=== PATIENT | female | born 1965 | race African-American/Black ===

== ENCOUNTER 2018-11-10 15:36 | Inpatient (IN) ==
[2018-11-10] MEDS ORDERED: SODIUM CHLORIDE 0.9% 1,000 ML IV STA ×2 (16:03→17:22)
[2018-11-10] MEDS ORDERED: ONDANSETRON 4 MG/2 ML VIAL IV STA (16:07)
[2018-11-10] MEDS ORDERED: hydrALAZINE 20 MG/1 ML VIAL IV STA (16:40)
[2018-11-10 16:52] LABS: Hematocrit 32.6 VOL% (35.7-47.0); Hemoglobin 10.1 GM/DL (12.0-16.0); Immature Granulocytes % 0.3 %; Immature Granulocytes Absolute 0.02 #; Lymphocytes # 1.4 10*3/uL (1.4-4.0); Lymphocytes % 24.3 % (21.3-54.2); Mean Corpuscular Volume 75.5 FL (87-102); Mean Platelet Volume 10.2 FL (9.6-12.0); Monocytes % 5.4 % (1.7-12.7); Platelet Count 345 T/CUMM (130-400); Red Blood Count 4.32 MC/CUMM (3.8-5.5); Red Cell Distribution Width 15.2 % (9.3-17.3); White Blood Count 5.8 T/CUMM (4-12)
[2018-11-10 17:03] LABS: INR 0.9; PT Patient Result 9.5 SECS (9.6-12.2)
[2018-11-10] MEDS ORDERED: INSULIN REGULAR 100 UNIT/ML IV STA (17:03)
[2018-11-10 17:10] LABS: Alanine Aminotransferase 16 U/L (13-56); Albumin 3.3 G/DL (3.4-5.0); Alkaline Phosphatase 103 U/L (45-117); Aspartate Amino Transferase 11 U/L (0-37); Bilirubin,Total < 0.39 MG/DL (0.2-1.0); Blood Urea Nitrogen 19 MG/DL (7-18); Calcium 9.8 MG/DL (8.5-10.1); Estimated Glom Filtration Rate 40 ML/MIN; Osmolality,Calculated 291.7 MOS/KG (273-304); Total Protein 7.6 G/DL (6.4-8.3); Troponin I < 0.015 NG/ML (0.00-0.045)
[2018-11-10] MEDS ORDERED: DEXTROSE 50% 25 GM/50 ML VIAL IV PRN (20:45)
[2018-11-10] MEDS ORDERED: ONDANSETRON 4 MG/2 ML VIAL IV PRN (20:45)
[2018-11-10] MEDS ORDERED: GLUCAGON 1 MG VIAL IM PRN (20:45)
[2018-11-10] MEDS ORDERED: ENOXAPARIN 40 MG/0.4 ML SYRINGE SUBCUT SCH (21:00)
[2018-11-10 21:41] LABS: Apearance,Urine CLEAR (Clear); Bacteria,Urine Occasional /HPF (Few); Bilirubin,Urine Negative (Negative); Blood, Urine Small mg/dL (Negative); Glucose,Urine (UA) >=500 mg/dL (Negative); Ketones,Urine Negative (Negative); Nitrite,Urine Negative (Negative); Protein,Urine 100 MG/DL; RBC,Urine 1 /HPF (0-4); Squamous Epithelial Cell,Urine Occasional /HPF (0-10); Urine Color Straw (Yellow); Urine Specific Gravity 1.017 (1.001-1.035); Urine Urobilinogen < 2.0 EU/DL (0.2-1.0); WBC,Urine <1 /HPF (0-6)
[2018-11-10] MEDS ORDERED: VENLAFAXINE XR 75 MG CAPSULE PO SCH (22:07)
[2018-11-10] MEDS ORDERED: LISINOPRIL 10 MG TABLET PO SCH (22:07)
[2018-11-10] MEDS ORDERED: ALBUTEROL 2.5 MG/3 ML NEB RESP TX PRN (22:07)
[2018-11-10] MEDS ORDERED: ZALEPLON 5 MG CAPSULE PO SCH (22:07)
[2018-11-10] MEDS ORDERED: HydrOXYzine PAMOATE 25 MG CAPSULE PO PRN (22:07)
[2018-11-10 22:08] LABS: Barbiturates Screen,Urine Negative (Negative); Benzodiazepines Screen,Urine Negative (Negative); Cannabinoid Screen,Urine Negative (Negative); Opiate Screen,Urine Negative (Negative); Phencyclidine Screen,Urine Negative (Negative)
[2018-11-10] MEDS: INSULIN REGULAR 100 UNIT/ML SUBCUT SCH ×2 (22:24→23:12)
[2018-11-10] MEDS: LABETALOL 20 MG/4 ML SYRINGE IV SCH ×2 (22:25→23:51)
[2018-11-10] MEDS ORDERED: INSULIN REGULAR 100 UNIT/ML SUBCUT STA (22:52)
[2018-11-10] MEDS: BENZTROPINE 1 MG TABLET PO SCH (23:05)
[2018-11-10] MEDS: hydroCHLOROthiazide 25 MG TABLET PO SCH (23:06)
[2018-11-10] MEDS: amLODIPine 5 MG TABLET PO SCH (23:08)
[2018-11-10] MEDS: QUEtiapine XR 50 MG TABLET PO SCH (23:09)
[2018-11-10] MEDS: MONTELUKAST 10 MG TABLET PO SCH (23:29)
[2018-11-11] MEDS: SODIUM CHLORIDE 0.9% 1,000 ML IV SCH ×4 (00:02→15:15)
[2018-11-11] MEDS: LABETALOL 20 MG/4 ML SYRINGE IV SCH ×16 (01:02→23:30)
[2018-11-11] MEDS: INSULIN REGULAR 100 UNIT/ML SUBCUT SCH ×5 (01:49→21:59)
[2018-11-11 06:17] LABS: Glucose 594 MG/DL (74-106)
[2018-11-11 07:14] LABS: Alanine Aminotransferase 12 U/L (13-56); Albumin 2.4 G/DL (3.4-5.0); Alkaline Phosphatase 75 U/L (45-117); Aspartate Amino Transferase 10 U/L (0-37); Bilirubin,Total < 0.39 MG/DL (0.2-1.0); Blood Urea Nitrogen 16 MG/DL (7-18); Calcium 8.9 MG/DL (8.5-10.1); Estimated Glom Filtration Rate 35 ML/MIN; Glucose 117 MG/DL (74-106); Osmolality,Calculated 282.3 MOS/KG (273-304); Total Protein 5.7 G/DL (6.4-8.3)
[2018-11-11 07:26] LABS: Eosinophils % 0.2 % (0.00-10.9); Hematocrit 24.9 VOL% (35.7-47.0); Immature Granulocytes % 0.3 %; Immature Granulocytes Absolute 0.02 #; Lymphocytes % 32.8 % (21.3-54.2); Mean Corpuscular HGB Conc 30.9 GM/DL (32-36); Mean Corpuscular Volume 76.9 FL (87-102); Mean Platelet Volume 9.5 FL (9.6-12.0); Monocytes % 9.1 % (1.7-12.7); Neutrophils % 57.6 % (38.7-73.9); Red Cell Distribution Width 15.4 % (9.3-17.3); White Blood Count 6.1 T/CUMM (4-12)
[2018-11-11 07:30] LABS: Hemoglobin 7.7 GM/DL (12.0-16.0); Platelet Count 225 T/CUMM (130-400); Red Blood Count 3.24 MC/CUMM (3.8-5.5)
[2018-11-11] MEDS ORDERED: metFORMIN 500 MG TABLET PO SCH (08:00)
[2018-11-11] MEDS: INSULIN LISPRO 100 UNIT/ML SUBCUT SCH ×3 (08:42→18:51)
[2018-11-11] MEDS: PANTOPRAZOLE 40 MG TABLET PO SCH ×2 (09:32→09:55)
[2018-11-11 12:01] LABS: % Iron Saturation 9.2 % (18-50); Ferritin 9.4 ng/ml (8-252)
[2018-11-11] MEDS ORDERED: cloNIDine 0.1 MG TABLET PO PRN (16:29)
[2018-11-11 17:17] LABS: Microalbum/Creat Ratio Random 1924.1 RATIO (0-30)
[2018-11-11] MEDS: ROSUVASTATIN 20 MG TABLET PO SCH (21:53)
[2018-11-11] MEDS: hydroCHLOROthiazide 25 MG TABLET PO SCH (21:53)
[2018-11-11] MEDS: APIXABAN 5 MG TABLET PO SCH (21:53)
[2018-11-11] MEDS: MONTELUKAST 10 MG TABLET PO SCH (21:53)
[2018-11-11] MEDS: amLODIPine 5 MG TABLET PO SCH (21:53)
[2018-11-11] MEDS: BENZTROPINE 1 MG TABLET PO SCH (21:54)
[2018-11-11] MEDS: QUEtiapine XR 50 MG TABLET PO SCH (21:54)
[2018-11-12] MEDS: LABETALOL 20 MG/4 ML SYRINGE IV SCH ×10 (00:26→11:50)
[2018-11-12 04:56] LABS: Eosinophils % 0.2 % (0.00-10.9); Hemoglobin 8.4 GM/DL (12.0-16.0); Immature Granulocytes % 0.2 %; Lymphocytes # 1.9 10*3/uL (1.4-4.0); Mean Corpuscular HGB Conc 31.1 GM/DL (32-36); Mean Corpuscular Volume 76.7 FL (87-102); Mean Platelet Volume 9.8 FL (9.6-12.0); Monocytes % 8.2 % (1.7-12.7); Neutrophils % 58.4 % (38.7-73.9); Platelet Count 247 T/CUMM (130-400); Red Blood Count 3.52 MC/CUMM (3.8-5.5); Red Cell Distribution Width 15.7 % (9.3-17.3); White Blood Count 5.7 T/CUMM (4-12)
[2018-11-12 04:57] LABS: Immature Granulocytes Absolute 0.01 #
[2018-11-12 05:27] LABS: Calcium 8.4 MG/DL (8.5-10.1); Osmolality,Calculated 283.5 MOS/KG (273-304)
[2018-11-12 05:57] LABS: Risk Ratio 3.3; VLDL CHOLESTEROL 57.4 MG/DL
[2018-11-12 06:08] LABS: Lymphocytes 36 % (20-55); Platelet Estimate Normal; Segmented Neutrophils 61 % (50-85); Total Cells Counted 100
[2018-11-12 06:09] LABS: Anisocytosis 1+; Smudge Cells Few
[2018-11-12] MEDS: SODIUM CHLORIDE 0.9% 1,000 ML IV SCH (06:15)
[2018-11-12] MEDS: INSULIN LISPRO 100 UNIT/ML SUBCUT SCH ×3 (07:31→16:36)
[2018-11-12] MEDS: INSULIN REGULAR 100 UNIT/ML SUBCUT SCH ×4 (07:31→20:20)
[2018-11-12] MEDS: COENZYME Q10 100 MG CAPSULE PO SCH (08:15)
[2018-11-12] MEDS: PANTOPRAZOLE 40 MG TABLET PO SCH (08:15)
[2018-11-12] MEDS ORDERED: VENLAFAXINE XR 75 MG CAPSULE PO SCH (09:00)
[2018-11-12] MEDS: IRON SUCROSE 200 MG in SODIUM CHLORIDE 0.9% 100 ML IV SCH (09:05)
[2018-11-12] MEDS: APIXABAN 5 MG TABLET PO SCH ×2 (09:05→20:20)
[2018-11-12] MEDS ORDERED: hydrALAZINE 20 MG/1 ML VIAL IV PRN (10:38)
[2018-11-12] MEDS ORDERED: LABETALOL 20 MG/4 ML SYRINGE IV PRN (10:38)
[2018-11-12] MEDS ORDERED: MAGNESIUM SULF RIDER 2 GM in PREMIX 1 EACH IV PRN (10:42)
[2018-11-12] MEDS ORDERED: MAGNESIUM SULF RIDER 4 GM in PREMIX 1 EACH IV PRN (10:42)
[2018-11-12] MEDS ORDERED: SODIUM CHLORIDE 0.9% 1,000 ML IV SCH (11:18)
[2018-11-12] MEDS: cloNIDine 0.1 MG TABLET PO SCH ×2 (11:22→20:20)
[2018-11-12] MEDS: BENZTROPINE 1 MG TABLET PO SCH (20:20)
[2018-11-12] MEDS: MONTELUKAST 10 MG TABLET PO SCH (20:20)
[2018-11-12] MEDS: ROSUVASTATIN 20 MG TABLET PO SCH (20:20)
[2018-11-13] MEDS: INSULIN REGULAR 100 UNIT/ML SUBCUT SCH ×4 (08:49→22:49)
[2018-11-13] MEDS: INSULIN LISPRO 100 UNIT/ML SUBCUT SCH ×3 (08:50→18:45)
[2018-11-13] MEDS: APIXABAN 5 MG TABLET PO SCH (08:51)
[2018-11-13] MEDS: hydroCHLOROthiazide 25 MG TABLET PO SCH (08:53)
[2018-11-13] MEDS: PANTOPRAZOLE 40 MG TABLET PO SCH (08:53)
[2018-11-13] MEDS: cloNIDine 0.1 MG TABLET PO SCH ×2 (08:54→21:37)
[2018-11-13] MEDS: COENZYME Q10 100 MG CAPSULE PO SCH (08:55)
[2018-11-13] MEDS ORDERED: amLODIPine 5 MG TABLET PO SCH (09:00)
[2018-11-13] MEDS ORDERED: amLODIPine 5 MG TABLET PO ONE (09:23)
[2018-11-13] MEDS: INSULIN GLARGINE 100 UNIT/ML SUBCUT SCH (10:53)
[2018-11-13] MEDS: VENLAFAXINE XR 75 MG CAPSULE PO SCH (10:54)
[2018-11-13] MEDS: ACETAMINOPHEN 325 MG TABLET PO PRN (12:39)
[2018-11-13] MEDS: IRON SUCROSE 200 MG in SODIUM CHLORIDE 0.9% 100 ML IV SCH (13:13)
[2018-11-13] MEDS: ASPIRIN EC 81 MG TABLET PO SCH (18:21)
[2018-11-13] MEDS: MONTELUKAST 10 MG TABLET PO SCH (21:37)
[2018-11-13] MEDS: APIXABAN 2.5 MG TABLET PO SCH (21:37)
[2018-11-13] MEDS: BENZTROPINE 1 MG TABLET PO SCH (21:37)
[2018-11-13] MEDS: ROSUVASTATIN 20 MG TABLET PO SCH (21:37)
[2018-11-13] MEDS: QUEtiapine XR 50 MG TABLET PO SCH (21:38)
[2018-11-14] MEDS: INSULIN REGULAR 100 UNIT/ML SUBCUT SCH ×4 (08:02→21:12)
[2018-11-14] MEDS: INSULIN GLARGINE 100 UNIT/ML SUBCUT SCH ×2 (08:14→17:37)
[2018-11-14] MEDS: INSULIN LISPRO 100 UNIT/ML SUBCUT SCH ×2 (08:35→11:51)
[2018-11-14] MEDS: ACETAMINOPHEN 325 MG TABLET PO PRN (09:12)
[2018-11-14] MEDS: hydroCHLOROthiazide 25 MG TABLET PO SCH (09:50)
[2018-11-14] MEDS: APIXABAN 2.5 MG TABLET PO SCH ×2 (09:50→22:13)
[2018-11-14] MEDS: VENLAFAXINE XR 75 MG CAPSULE PO SCH (09:50)
[2018-11-14] MEDS: COENZYME Q10 100 MG CAPSULE PO SCH (09:50)
[2018-11-14] MEDS: cloNIDine 0.1 MG TABLET PO SCH ×2 (09:50→22:14)
[2018-11-14] MEDS: ASPIRIN EC 81 MG TABLET PO SCH (09:50)
[2018-11-14] MEDS: PANTOPRAZOLE 40 MG TABLET PO SCH (09:51)
[2018-11-14] MEDS: amLODIPine 10 MG TABLET PO SCH (09:51)
[2018-11-14] MEDS: IRON SUCROSE 200 MG in SODIUM CHLORIDE 0.9% 100 ML IV SCH (10:20)
[2018-11-14] MEDS ORDERED: INSULIN GLARGINE 100 UNIT/ML SUBCUT SCH (17:00)
[2018-11-14] MEDS: QUEtiapine XR 50 MG TABLET PO SCH (22:14)
[2018-11-14] MEDS: BENZTROPINE 1 MG TABLET PO SCH (22:15)
[2018-11-14] MEDS: MONTELUKAST 10 MG TABLET PO SCH (22:16)
[2018-11-14] MEDS: ROSUVASTATIN 20 MG TABLET PO SCH (22:16)
[2018-11-15 04:51] LABS: Calcium 8.4 MG/DL (8.5-10.1); Osmolality,Calculated 284.7 MOS/KG (273-304)
[2018-11-15] MEDS: hydroCHLOROthiazide 25 MG TABLET PO SCH (09:21)
[2018-11-15] MEDS: cloNIDine 0.1 MG TABLET PO SCH (09:21)
[2018-11-15] MEDS: INSULIN REGULAR 100 UNIT/ML SUBCUT SCH ×2 (09:21→12:45)
[2018-11-15] MEDS: PANTOPRAZOLE 40 MG TABLET PO SCH (09:21)
[2018-11-15] MEDS: ASPIRIN EC 81 MG TABLET PO SCH (09:21)
[2018-11-15] MEDS: INSULIN GLARGINE 100 UNIT/ML SUBCUT SCH (09:22)
[2018-11-15] MEDS: VENLAFAXINE XR 75 MG CAPSULE PO SCH (09:25)
[2018-11-15] MEDS: COENZYME Q10 100 MG CAPSULE PO SCH (09:25)
[2018-11-15] MEDS: amLODIPine 10 MG TABLET PO SCH (09:25)
[2018-11-15] MEDS: APIXABAN 2.5 MG TABLET PO SCH (09:25)
[2018-11-15] MEDS ORDERED: VENLAFAXINE XR 75 MG CAPSULE PO ONE (10:30)
[2018-11-15] MEDS ORDERED: hydrALAZINE 25 MG TABLET PO SCH (10:32)
[2018-11-15] MEDS ORDERED: carvediloL 3.125 MG TABLET PO SCH (10:34)
[2018-11-15] MEDS ORDERED: INSULIN GLARGINE 100 UNIT/ML SUBCUT SCH (12:00)
[2018-11-15 14:03] VITALS: BP 152/78
[2018-11-16] MEDS ORDERED: VENLAFAXINE XR 75 MG CAPSULE PO SCH (09:00)
== END 2018-11-15 14:21 | disposition home health service (06) | DRG 65 ==
LOC: N.ED 15:36 → N.EDINP 15:36 → SUATTDRO 20:45 → N.4E 21:41
PROVIDERS: ADMIT Internal Medicine; ATTEND Internal Medicine

== ENCOUNTER 2019-06-21 21:29 | Observation (INO) ==
[2019-06-21 22:28] LABS: Eosinophils % 0.1 % (0.00-10.9); Hematocrit 28.1 VOL% (35.7-47.0); Hemoglobin 8.8 GM/DL (12.0-16.0); Immature Granulocytes % 0.4 %; Immature Granulocytes Absolute 0.04 #; Lymphocytes # 1.9 10*3/uL (1.4-4.0); Lymphocytes % 18.8 % (21.3-54.2); Mean Corpuscular HGB Conc 31.3 GM/DL (32-36); Mean Corpuscular Volume 82.2 FL (87-102); Mean Platelet Volume 9.3 FL (9.6-12.0); Monocytes % 7.1 % (1.7-12.7); Neutrophils % 73.6 % (38.7-73.9); Platelet Count 325 T/CUMM (130-400); Red Blood Count 3.42 MC/CUMM (3.8-5.5); Red Cell Distribution Width 13.6 % (9.3-17.3); White Blood Count 9.9 T/CUMM (4-12)
[2019-06-21] MEDS ORDERED: SODIUM CHLORIDE 0.9% 1,000 ML IV STA (22:34)
[2019-06-21 22:39] LABS: PT Patient Result 10.4 SECS (9.8-11.9); Partial Thromboplastin Time 27.5 SECS (23.9-33.8)
[2019-06-21 23:34] LABS: Alanine Aminotransferase 22 U/L (13-56); Albumin 2.9 G/DL (3.4-5.0); Alkaline Phosphatase 71 U/L (45-117); Aspartate Amino Transferase 10 U/L (0-37); Bilirubin,Total < 0.39 MG/DL (0.2-1.0); Blood Urea Nitrogen 51 MG/DL (7-18); Calcium 8.9 MG/DL (8.5-10.1); Estimated Glom Filtration Rate 20 ML/MIN; Glucose 121 MG/DL (74-106); Total Protein 7.5 G/DL (6.4-8.3)
[2019-06-21] MEDS ORDERED: ONDANSETRON 4 MG/2 ML VIAL IV PRN (23:49)
[2019-06-21] MEDS ORDERED: GLUCAGON 1 MG VIAL IM PRN (23:49)
[2019-06-21] MEDS ORDERED: DEXTROSE 10% 250 ML BAG IV PRN (23:49)
[2019-06-21] MEDS ORDERED: ACETAMINOPHEN 325 MG TABLET PO PRN (23:49)
[2019-06-22] MEDS: INSULIN REGULAR 100 UNIT/ML SUBCUT SCH ×3 (00:53→13:03)
[2019-06-22] MEDS: SODIUM CHLORIDE 0.9% 1,000 ML IV SCH ×2 (01:26→09:18)
[2019-06-22 08:15] LABS: Apearance,Urine Slightly Hazy (Clear); Bilirubin,Urine Negative (Negative); Blood, Urine Large mg/dL (Negative); Glucose,Urine (UA) 50 mg/dL (Negative); Ketones,Urine Negative (Negative); Nitrite,Urine Negative (Negative); Protein,Urine 100 MG/DL; RBC,Urine 1853 /HPF (0-4); Urine Color Red (Yellow); Urine Specific Gravity 1.013 (1.001-1.035); Urine Urobilinogen < 2.0 EU/DL (0.2-1.0); WBC,Urine 17 /HPF (0-6)
[2019-06-22 08:48] LABS: Barbiturates Screen,Urine Negative (Negative); Benzodiazepines Screen,Urine Positive (Negative); Cannabinoid Screen,Urine Negative (Negative); Opiate Screen,Urine Negative (Negative); Phencyclidine Screen,Urine Negative (Negative)
[2019-06-22] MEDS ORDERED: PANTOPRAZOLE 40 MG VIAL IV SCH (09:00)
[2019-06-22 11:08] LABS: Eosinophils % 0.1 % (0.00-10.9); Hematocrit 27.7 VOL% (35.7-47.0); Hemoglobin 8.7 GM/DL (12.0-16.0); Immature Granulocytes % 0.4 %; Immature Granulocytes Absolute 0.03 #; Lymphocytes # 1.7 10*3/uL (1.4-4.0); Lymphocytes % 20.2 % (21.3-54.2); Mean Corpuscular HGB Conc 31.4 GM/DL (32-36); Mean Corpuscular Volume 81.7 FL (87-102); Mean Platelet Volume 9.2 FL (9.6-12.0); Neutrophils % 72.3 % (38.7-73.9); Platelet Count 323 T/CUMM (130-400); Red Blood Count 3.39 MC/CUMM (3.8-5.5); Red Cell Distribution Width 13.5 % (9.3-17.3); White Blood Count 8.3 T/CUMM (4-12)
[2019-06-22 11:27] LABS: Calcium 8.2 MG/DL (8.5-10.1); Osmolality,Calculated 287.7 MOS/KG (273-304)
[2019-06-22 12:39] VITALS: BP 186/78
[2019-06-22] MEDS ORDERED: prednisoLONE ACETATE 1% OPH SUSP 5 ML BOTTLE LEFT EYE SCH (13:00)
[2019-06-22] MEDS ORDERED: ALBUTEROL 2.5 MG/3 ML NEB RESP TX PRN (13:00)
[2019-06-22] MEDS ORDERED: GABAPENTIN 100 MG CAPSULE PO SCH (15:00)
[2019-06-22] MEDS ORDERED: BRIMONIDINE 0.2% OPH SOLN 5 ML BOTTLE LEFT EYE SCH (21:00)
[2019-06-22] MEDS ORDERED: ROSUVASTATIN 20 MG TABLET PO SCH (21:00)
[2019-06-22] MEDS ORDERED: BRIMONIDINE/TIMOLOL OPH SOLN 5 ML BOTTLE BOTH EYES SCH (21:00)
[2019-06-22] MEDS ORDERED: LATANOPROST 0.005% OPH SOLN 2.5 ML BOTTLE LEFT EYE SCH (21:00)
[2019-06-22] MEDS ORDERED: QUEtiapine XR 50 MG TABLET PO SCH (21:00)
[2019-06-22] MEDS ORDERED: carvediloL 3.125 MG TABLET PO SCH (21:00)
[2019-06-22] MEDS ORDERED: VENLAFAXINE XR 75 MG CAPSULE PO SCH (21:00)
[2019-06-22] MEDS ORDERED: APIXABAN 2.5 MG TABLET PO SCH (21:00)
[2019-06-22] MEDS ORDERED: BENZTROPINE 0.5 MG TABLET PO SCH (21:00)
[2019-06-23] MEDS ORDERED: INSULIN GLARGINE 100 UNIT/ML SUBCUT SCH (08:00)
[2019-06-23] MEDS ORDERED: amLODIPine 10 MG TABLET PO SCH (09:00)
[2019-06-23] MEDS ORDERED: ASPIRIN EC 81 MG TABLET PO SCH (09:00)
== END 2019-06-22 14:50 | disposition left against medical advice (07) ==
LOC: N.EDINP 21:29 → N.ED 21:29 → N.TELES 06-22 00:12
PROVIDERS: ADMIT Family Medicine; ATTEND Family Medicine